=== PATIENT | male | born 1960 | race African-American/Black ===

== ENCOUNTER 2018-12-10 09:54 | Inpatient (IN) | payer OTHER ==
[2018-12-10 10:53] VITALS: BMI 21.4
--- NOTE | 2018-12-10 13:02 | HP ---
CIWA Score Nausea/Vomitin Muscle Tremors: 2 Anxiety: 2 Agitation: 2 Paroxysmal Sweats: 1-Minimal Palms Moist Orientation: 0-Oriented Tacttile Disturbances: 1-Very Mild Itch/Numbness Auditory Disturbances: 1-Very Mild Visual Disturbances: 0-None Headache: 2-Mild CIWA-Ar Total Score: 13 - Admission Criteria OASAS Guidelines: Admission for Medically Managed Detox: Requires at least one of the followin. CIWA greater than 12 2. Seizures within the past 24 hours 3. Delirium tremens within the past 24 hours 4. Hallucinations within the past 24 hours 5. Acute intervention needed for co occurring medical disorder 6. Acute intervention needed for co occurring psychiatric disorder 7. Severe withdrawal that cannot be handled at a lower level of care (continued vomiting, continued diarrhea, abnormal vital signs) requiring intravenous medication and/or fluids 8. Admission ROS [facility] - HPI Chief Complaint: i need help to stop drinking alcohol Allergies/Adverse Reactions: Allergies Allergy/AdvReac Type Severity Reaction Status Date / Time No Known Allergies Allergy Verified 12/10/18 10:45 History of Present Illness: this 58 years old male with alcohol dependence seeking detox,withdrawal symptom, last detox in 2013 [facility] has previous admission in detox,before nicotine dependence 2 cigarette/day syncope alcohol related longest sobriety 90 days plan for out patient program,[facility] laceration of right eyebrow with stitches seen in [place] 2 days ago with stitches Exam Limitations: No Limitations - Ebola screening Have you traveled outside of the country in the last 21 days: No Have you had contact with anyone from an Ebola affected area: No - Review of Systems Constitutional: Loss of Appetite, Malaise, Night Sweats, Changes in sleep, Weakness, Unintentional Wgt. Loss EENT: reports: Nose Congestion Respiratory: reports: No Symptoms reported Cardiac: reports: No Symptoms Reported GI: reports: Nausea, Poor Appetite, Abdominal cramping : reports: No Symptoms Reported Musculoskeletal: reports: Back Pain, Muscle Pain Integumentary: reports: Dryness Neuro: reports: Headache, Tremors Endocrine: reports: No Symptoms Reported Hematology: reports: No Symptoms Reported Psychiatric: reports: No Sypmtoms Reported, Judgement Intact, Mood/Affect Appropiate, Orientated x3 Other Systems: Reviewed and Negative Patient History - Patient Medical History Hx Anemia: No Hx Asthma: No Hx Chronic Obstructive Pulmonary Disease (COPD): No Hx Cancer: No Hx Cardiac Disorders: No Hx Congestive Heart Failure: No Hx Hypertension: No Hx Hypercholesterolemia: No Hx Pacemaker: No HX Cerebrovascular Accident: No Hx Seizures: No Hx Dementia: No Hx Diabetes: No Hx Gastrointestinal Disorders: No Hx Liver Disease: No Hx Genitourinary Disorders: No Hx Sexually Transmitted Disorders: No Hx Renal Disease (ESRD): No Hx Thyroid Disease: No Hx Human Immunodeficiency Virus (HIV): No (last 2018 negative) Hx Hepatitis C: No Hx Depression: No Hx Suicide Attempt: No Hx Bipolar Disorder: No Hx Schizophrenia: No Other Medical History: no suicidal,no homicidal - Patient Surgical History Hx Orthopedic Surgery: Yes (fx of right leg and right hand 30 years ago) - PPD History Previous Implant?: Yes Documented Results: Negative w/o proof Implanted On Prior [facility] Admission?: No PPD to be Administered?: Yes - Smoking Cessation Smoking history: Current every day smoker Have you smoked in the past 12 months: Yes Aproximately how many cigarettes per day: 2 Cigars Per Day: 0 Hx Chewing Tobacco Use: No Initiated information on smoking cessation: Yes 'Breaking Loose' booklet given: 12/10/18 - Substance & Tx. History Hx Alcohol Use: Yes Hx Substance Use: No Substance Use Type: Alcohol Hx Substance Use Treatment: Yes ([facility] in 2013) - Substances abused Alcohol Substance route: Oral Frequency: Daily Amount used: 2 pints of vodka Age of first use: 16 Date of last use: 12/10/18 Family Disease History - Family Disease History Family Disease History: CA: Mother (ovarian ,), Other: Father (alcohol, ) Admission Physical Exam S - Vital Signs Vital Signs: Vital Signs - 24 hr 12/10/18 12/10/18 10:43 11:53 Temperature 97.0 F L 97.0 F L Pulse Rate 80 80 Respiratory 16 16 Rate Blood Pressure 152/100 152/100 - Physical General Appearance: Yes: Moderate Distress, Tremorous, Irritable, Sweating, Anxious HEENTM: Yes: Normal ENT Inspection, Normocephalic, HELEN, Pharynx Normal Respiratory: Yes: Lungs Clear, Normal Breath Sounds, No Respiratory Distress Neck: Yes: Within Normal Limits Breast: Yes: Within Normal Limits Cardiology: Yes: Within Normal Limits, Regular Rhythm, Regular Rate, S1, S2 Abdominal: Yes: Within Normal Limits, Normal Bowel Sounds, Non Tender, Soft Genitourinary: Yes: Within Normal Limits Back: Yes: Muscle Spasm Musculoskeletal: Yes: Back pain, Muscle Pain Extremities: Yes: Tremors, Other (arthritis) Neurological: Yes: geriatric physician II-XII NML intact, Fully Oriented, Alert, Motor Strength 5/5 Integumentary: Yes: Dry Lymphatic: Yes: Within Normal Limits - Diagnostic (1) Alcohol dependence with uncomplicated withdrawal Current Visit: Yes Status: Acute (2) Syncope Current Visit: Yes Status: Acute (3) Essential hypertension Current Visit: Yes Status: Acute (4) Laceration of right eyebrow Current Visit: Yes Status: Acute (5) Nicotine dependence Current Visit: Yes Status: Acute (6) Weight loss Current Visit: Yes Status: Acute (7) Dehydration Current Visit: Yes Status: Acute (8) Leg fracture, right Current Visit: Yes Status: Acute (9) Right hand fracture Current Visit: Yes Status: Acute Cleared for Admission S - Detox or Rehab [facility] Level of Care: Medically Managed Detox Regimen/Protocol: Librium Breathalyzer - Breathalyzer Breathalyzer: 0.100 Urine Drug Screen - Test Device Lot number: [id number] Expiration date: 09/06/20 - Control Is test valid?: Yes - Results Drug screen NEGATIVE: Yes Inpatient Rehab Admission - Rehab Decision to Admit Inpatient rehab admission?: No
[2018-12-10] MEDS ORDERED: MAGNESIUM CITRATE 300 ML BOTTLE PO PRN (13:20)
[2018-12-10] MEDS ORDERED: MELATONIN 5 MG TABLETS PO PRN (13:20)
[2018-12-10] MEDS ORDERED: MAG HYDROX/AL HYDROX/SIMETH 30 ML UNIT-DOSE CUP PO PRN (13:20)
[2018-12-10] MEDS ORDERED: METHOCARBAMOL 500 MG TABLET PO PRN (13:20)
[2018-12-10] MEDS ORDERED: hydrOXYzine PAMOATE 25 MG CAPSULE (FP) PO PRN (13:20)
[2018-12-10] MEDS ORDERED: MENTHOL/PHENOL 1 EACH UD MM PRN (13:20)
[2018-12-10] MEDS ORDERED: IBUPROFEN 400 MG TABLET (FP) PO PRN (13:20)
[2018-12-10] MEDS ORDERED: ACETAMINOPHEN 325 MG TABLET (FP) PO PRN ×2 (13:20)
[2018-12-10] MEDS ORDERED: BISMUTH SUBSALICYLATE 524 MG/30 ML UD PO PRN (13:20)
[2018-12-10] MEDS ORDERED: MAGNESIUM HYDROX 2400MG/30ML ORAL SUSPENSION 30 ML CUP PO PRN (13:20)
[2018-12-10] MEDS: chlordiazePOXIDE HCL 25 MG CAPSULE PO PRN (14:03)
[2018-12-10 17:08] LABS: HEMATOCRIT 37.7 % (35.4-49); HEMOGLOBIN 12.2 GM/dL (11.7-16.9); MCH 30.9 pg (25.7-33.7); MCHC 32.3 g/dl (32.0-35.9); MEAN CELL VOLUME 95.8 fl (80-96); MEAN PLT VOLUME 9.7 fl (7.5-11.1); PLATELET COUNT 145 K/MM3 (134-434); RBC 3.94 M/mm3 (4.00-5.60); RDW 15.5 % (11.9-15.9); WHITE BLOOD COUNT 5.9 K/mm3 (4.0-10.0)
[2018-12-10 17:14] LABS: ALBUMIN 3.8 g/dl (3.4-5.0); BILIRUBIN,TOTAL 0.2 mg/dL (0.2-1); CALCIUM 8.6 mg/dL (8.5-10.1); CREATININE 0.8 mg/dL (0.55-1.3); POTASSIUM 4.2 mmol/L (3.5-5.1)
[2018-12-10] MEDS: chlordiazePOXIDE HCL 25 MG CAPSULE PO SCH ×2 (17:33→22:29)
[2018-12-10] MEDS: THIAMINE HCL 100 MG TABLET (FP) PO SCH (22:29)
[2018-12-11] MEDS: chlordiazePOXIDE HCL 25 MG CAPSULE PO SCH ×4 (05:40→22:21)
--- NOTE | 2018-12-11 10:16 | PN ---
S CIWA - CIWA Score Nausea/Vomitin Muscle Tremors: 2 Anxiety: 3 Agitation: 2 Paroxysmal Sweats: 1-Minimal Palms Moist Orientation: 0-Oriented Tacttile Disturbances: 1-Very Mild Itch/Numbness Auditory Disturbances: 1-Very Mild Visual Disturbances: 0-None Headache: 1-Very Mild CIWA-Ar Total Score: 13 BHS Progress Note (SOAP) Subjective: alert,irritable,anxious,interrupted sleep,tremor pain in the body Objective: 12/11/18 10:15 Vital Signs Temperature 97.7 F 12/11/18 09:21 Pulse Rate 70 12/11/18 09:21 Respiratory Rate 16 12/11/18 09:21 Blood Pressure 143/90 12/11/18 09:21 O2 Sat by Pulse Oximetry (%) Laboratory Last Values WBC 5.9 K/mm3 (4.0-10.0) 12/10/18 13:50 RBC 3.94 M/mm3 (4.00-5.60) L 12/10/18 13:50 Hgb 12.2 GM/dL (11.7-16.9) 12/10/18 13:50 Hct 37.7 % (35.4-49) 12/10/18 13:50 MCV 95.8 fl (80-96) 12/10/18 13:50 MCH 30.9 pg (25.7-33.7) 12/10/18 13:50 MCHC 32.3 g/dl (32.0-35.9) 12/10/18 13:50 RDW 15.5 % (11.9-15.9) 12/10/18 13:50 Plt Count 145 K/MM3 (134-434) 12/10/18 13:50 MPV 9.7 fl (7.5-11.1) 12/10/18 13:50 Sodium 145 mmol/L (136-145) 12/10/18 13:50 Potassium 4.2 mmol/L (3.5-5.1) 12/10/18 13:50 Chloride 114 mmol/L (98-107) H 12/10/18 13:50 Carbon Dioxide 22 mmol/L (21-32) 12/10/18 13:50 Anion Gap 9 MMOL/L (8-16) 12/10/18 13:50 BUN 12 mg/dL (7-18) 12/10/18 13:50 Creatinine 0.8 mg/dL (0.55-1.3) 12/10/18 13:50 Est GFR (CKD-EPI)AfAm 112.53 12/10/18 13:50 Est GFR (CKD-EPI)NonAf 97.10 12/10/18 13:50 Random Glucose 97 mg/dL (74-106) 12/10/18 13:50 Calcium 8.6 mg/dL (8.5-10.1) 12/10/18 13:50 Total Bilirubin 0.2 mg/dL (0.2-1) 12/10/18 13:50 AST 21 U/L (15-37) 12/10/18 13:50 ALT 16 U/L (13-61) 12/10/18 13:50 Alkaline Phosphatase 127 U/L (45-117) H 12/10/18 13:50 Total Protein 8.0 g/dl (6.4-8.2) 12/10/18 13:50 Albumin 3.8 g/dl (3.4-5.0) 12/10/18 13:50 RPR Titer Nonreactive (NONREACTIVE) 12/10/18 13:50 HIV 1&2 Antibody Screen Negative 12/10/18 13:50 HIV P24 Antigen Negative 12/10/18 13:50 Assessment: 12/11/18 10:16 withdrawal symptom Plan: continue detox
[2018-12-11] MEDS: PRENATAL VITAMINS W/ FOLIC ACID TABLET (FP) PO SCH (10:29)
--- NOTE | 2018-12-11 12:04 | EKG ---
Test Reason : Blood Pressure : / mmHG Vent. Rate : 077 BPM Atrial Rate : 077 BPM P-R Int : 166 ms QRS Dur : 102 ms QT Int : 382 ms P-R-T Axes : 078 078 060 degrees QTc Int : 432 ms NORMAL SINUS RHYTHM POSSIBLE LEFT ATRIAL ENLARGEMENT LEFT VENTRICULAR HYPERTROPHY EARLY REPOLARIZATION ABNORMAL ECG NO PREVIOUS ECGS AVAILABLE Confirmed by Anthony Morales MD ([id number]) on 12/11/2018 12:04:30 PM Referred By: Confirmed By:Anthony Morales MD
[2018-12-11] MEDS: chlordiazePOXIDE HCL 25 MG CAPSULE PO PRN (19:32)
[2018-12-11] MEDS: THIAMINE HCL 100 MG TABLET (FP) PO SCH (22:21)
[2018-12-12] MEDS: chlordiazePOXIDE HCL 25 MG CAPSULE PO SCH ×2 (06:10→10:33)
[2018-12-12] MEDS: PRENATAL VITAMINS W/ FOLIC ACID TABLET (FP) PO SCH (10:33)
--- NOTE | 2018-12-12 15:44 | PN ---
[facility] CIWA - CIWA Score Nausea/Vomitin-No Nausea/No Vomiting Muscle Tremors: 3 Anxiety: 2 Agitation: 0-Normal Activity Paroxysmal Sweats: No Perspiration Orientation: 0-Oriented Tacttile Disturbances: 2-Mild Itch/Numbness/Burn Auditory Disturbances: 1-Very Mild Visual Disturbances: 3-Moderate Sensitivity Headache: 0-None Present CIWA-Ar Total Score: 11 S Progress Note (SOAP) Subjective: Fatigue, Anxious, Body Aches. Objective: PATIENT A & O X 3. IN NO ACUTE DISTRESS. 12/12/18 15:41 Vital Signs Temperature 98.1 F 12/12/18 13:45 Pulse Rate 75 12/12/18 13:45 Respiratory Rate 17 12/12/18 13:45 Blood Pressure 113/73 12/12/18 13:45 O2 Sat by Pulse Oximetry (%) Laboratory Tests 12/10/18 12/10/18 12/10/18 13:50 13:50 13:50 WBC 5.9 RBC 3.94 L Hgb 12.2 Hct 37.7 MCV 95.8 MCH 30.9 MCHC 32.3 RDW 15.5 Plt Count 145 MPV 9.7 Sodium 145 Potassium 4.2 Chloride 114 H Carbon Dioxide 22 Anion Gap 9 BUN 12 Creatinine 0.8 Est GFR (CKD-EPI)AfAm 112.53 Est GFR (CKD-EPI)NonAf 97.10 Random Glucose 97 Calcium 8.6 Total Bilirubin 0.2 AST 21 ALT 16 Alkaline Phosphatase 127 H Total Protein 8.0 Albumin 3.8 RPR Titer HIV 1&2 Antibody Screen Negative HIV P24 Antigen Negative 12/10/18 13:50 WBC RBC Hgb Hct MCV MCH MCHC RDW Plt Count MPV Sodium Potassium Chloride Carbon Dioxide Anion Gap BUN Creatinine Est GFR (CKD-EPI)AfAm Est GFR (CKD-EPI)NonAf Random Glucose Calcium Total Bilirubin AST ALT Alkaline Phosphatase Total Protein Albumin RPR Titer Nonreactive HIV 1&2 Antibody Screen HIV P24 Antigen LABS NOTED. Assessment: 12/12/18 15:41 WITHDRAWAL SYMPTOMS. POSITIVE PPD. 12/12/18 15:44 Plan: CONTINUE DETOX. PPD INDURATION OF APPROX. 6 MM NOTED FOR PATIENT. WHEN ASKED PATIENT REPORTS THAT HE THINKS THAT HE MIGHT HAVE HAD A POSITIVE PPD ONE TIME IN PAST, BUT WAS UNCERTAIN AND WAS UNCERTAIN WHETHER OR NOT HE HAD EVER BEEN DIAGNOSED AND/OR TREATED FOR TB IN THE PAST. CXR ORDERED TODAY PRECAUTION.
[2018-12-12] MEDS ORDERED: chlordiazePOXIDE HCL 10 MG CAPSULE PO PRN (17:00)
[2018-12-12] MEDS: chlordiazePOXIDE HCL 10 MG CAPSULE PO SCH ×2 (18:15→22:46)
[2018-12-12] MEDS: THIAMINE HCL 100 MG TABLET (FP) PO SCH (22:46)
[2018-12-13] MEDS: chlordiazePOXIDE HCL 10 MG CAPSULE PO SCH ×3 (06:26→17:48)
--- NOTE | 2018-12-13 10:42 | PN ---
[facility] CIWA - CIWA Score Nausea/Vomitin-Mild Nausea/No Vomiting Muscle Tremors: 2 Anxiety: 2 Agitation: 2 Paroxysmal Sweats: 1-Minimal Palms Moist Orientation: 0-Oriented Tacttile Disturbances: 1-Very Mild Itch/Numbness Auditory Disturbances: 1-Very Mild Visual Disturbances: 0-None Headache: 1-Very Mild CIWA-Ar Total Score: 11 BHS Progress Note (SOAP) Subjective: alert,irritable,anxious,interrupted sleep Objective: 12/13/18 10:42 Vital Signs Temperature 97.6 F 12/13/18 09:15 Pulse Rate 84 12/13/18 09:15 Respiratory Rate 16 12/13/18 09:15 Blood Pressure 120/79 12/13/18 09:15 O2 Sat by Pulse Oximetry (%) Assessment: 12/13/18 10:42 withdrawal symptom Plan: continue detox,discharge in am
[2018-12-13] MEDS: PRENATAL VITAMINS W/ FOLIC ACID TABLET (FP) PO SCH (11:28)
[2018-12-13 12:42] LABS: EPI CELLS 1.4 /HPF (0-5/HPF); HYALINE CASTS 2 /lpf (0-8); URINE APPEARANCE CLEAR; URINE BACTERIA 2.4 /hpf (NEGATIVE); URINE BILIRUBIN NEGATIVE (NEGATIVE); URINE COLOR YELLOW; URINE GLUCOSE (UA) NEGATIVE (NEGATIVE); URINE KETONE NEGATIVE (NEGATIVE); URINE LEUK ESTERASE NEGATIVE (NEGATIVE); URINE NITRITE NEGATIVE (NEGATIVE); URINE PROTEIN NEGATIVE (NEGATIVE); URINE RBC 2 /hpf (0-4); URINE UROBILINOGEN 0.2 mg/dL (0.2-1.0); URINE WBC 2 /hpf (0-5)
[2018-12-13] MEDS: THIAMINE HCL 100 MG TABLET (FP) PO SCH (22:19)
[2018-12-14] MEDS: chlordiazePOXIDE HCL 10 MG CAPSULE PO SCH (06:14)
--- NOTE | 2018-12-14 08:46 | DS ---
[facility] Detox Discharge Summary Admission Date: 12/10/18 Discharge Date: 12/14/18 - History Present History: Alcohol Dependence - Physical Exam Results Vital Signs: Vital Signs Temperature 97.9 F 12/14/18 06:00 Pulse Rate 71 12/14/18 06:00 Respiratory Rate 18 12/14/18 06:00 Blood Pressure 119/55 L 12/14/18 06:00 O2 Sat by Pulse Oximetry (%) - Treatment Hospital Course: Detox Protocol Followed, Detoxed Safely, Responded well, Discharged Condition Good, Rehab Referral Accepted - Medication Discharge Medications: Ambulatory Orders NK [No Known Home Medication] 12/10/18 - Diagnosis (1) Alcohol dependence with uncomplicated withdrawal Current Visit: Yes Status: Chronic (2) Essential hypertension Current Visit: Yes Status: Chronic (3) Laceration of right eyebrow Current Visit: Yes Status: Acute (4) Leg fracture, right Current Visit: Yes Status: Acute (5) Nicotine dependence Current Visit: Yes Status: Acute Qualifiers: Nicotine product type: cigarettes Substance use status: uncomplicated Qualified Code(s): F17.210 - Nicotine dependence, cigarettes, uncomplicated (6) Positive PPD Current Visit: Yes Status: Chronic (7) Right hand fracture Current Visit: Yes Status: Acute (8) Syncope Current Visit: Yes Status: Acute - AMA Did Patient Leave Against Medical Advice: No (pt declined aftercare)
[2018-12-14 09:13] VITALS: BP 129/89; PULSE 73; TEMP 97.7
== END 2018-12-14 10:17 | disposition home or self-care (01) | DRG 775 ==
LOC: YASAS 09:54 → Y6N 13:26
PROVIDERS: ADMIT Surgery; ATTEND Surgery
PROC: HZ2ZZZZ Detoxification Services for Substance Abuse Treatment (ICD-10-PCS; principal; 2018-12-10)
DX: F10.230 Alcohol dependence with withdrawal, uncomplicated (principal); F17.210 Nicotine dependence, cigarettes, uncomplicated; I10 Essential (primary) hypertension; E86.0 Dehydration; R55 Syncope and collapse; R76.11 Nonspecific reaction to tuberculin skin test without active tuberculosis; R63.4 Abnormal weight loss; Z68.21 Body mass index [BMI] 21.0-21.9, adult; S01.112D Laceration without foreign body of left eyelid and periocular area, subsequent encounter; X58.XXXD Exposure to other specified factors, subsequent encounter
CPT/HCPCS: 36415; 80053; 81003; 85027; 86593; 87389; 93005; 93010